=== PATIENT | female | born 1960 | race Caucasian/White ===

== ENCOUNTER 2023-08-13 21:54 | Emergency (ER) | payer BC ==
[2023-08-13 22:07] VITALS: TEMP 98.2
[2023-08-13] MEDS ORDERED: MORPHINE SULFATE 4 MG/ML SYRINGE IVP STA (23:18)
[2023-08-13] MEDS ORDERED: SODIUM CHLORIDE 0.9% 500 ML 500 ML IV STA (23:19)
--- NOTE | 2023-08-13 23:23 | ED ---
General Adult HPI - General Chief complaint: Extremity Injury, Upper Stated complaint: Left Shoulder/Arm Injury Time Seen by Provider: 08/13/23 23:01 Source: patient, RN notes reviewed, old records reviewed Mode of arrival: ambulatory Limitations: no limitations - History of Present Illness Initial comments: Patient is a 63-year-old female who presents emergency Department complaining of left shoulder pain. Patient tripped over her grandchild and landed with an outstretched left arm. Patient is complaining of shoulder pain since that time. Cannot move her shoulder. Denies hitting her head or loss consciousness. He is not on blood thinners. Has no other obvious injuries. Presents for further evaluation at this time. Patient is right-handed. - Related Data Previous Rx's Medication Instructions Recorded HYDROcodone/APAP 5-325MG [[place] 1 tab PO Q6HR PRN 3 Days #12 tab 08/14/23 5-325] Allergies Allergy/AdvReac Type Severity Reaction Status Date / Time No Known Allergies Allergy Verified 08/13/23 22:04 Review of Systems ROS Statement: Those systems with pertinent positive or pertinent negative responses have been documented in the HPI. Review of Systems: CONST: Denies fever EYES: Denies blurry vision ENT: Denies nasal congestion C/V: Denies Chest pain RESP: Denies shortness of breath GI: Denies abdominal pain : Denies dysuria SKIN: Denies rash. MSK: Endorses left shoulder pain NEURO: Denies headache ROS Other: All systems not noted in ROS Statement are negative. Past Medical History Past Medical History: Asthma, Diabetes Mellitus, Hyperlipidemia, Hypertension Additional Past Medical History / Comment(s): SVT Past Surgical History: Orthopedic Surgery Additional Past Surgical History / Comment(s): lithotripsy Past Psychological History: Anxiety, Depression Smoking Status: Never smoker Past Alcohol Use History: Occasional Past Drug Use History: None Reported General Exam - General Exam Comments Initial Comments: General: Appears in no acute distress. HEAD: Normal with no signs of head trauma. EYES: PERRLA, EOMI, conjunctiva normal, no discharge. ENT: Hearing grossly intact, normal oropharynx. RESPIRATORY: Clear breath sounds bilaterally. No wheezes, rales, or rhonchi. C/V: Regular rate and rhythm. S1 and S2 auscultated, peripheral pulses 2+ and intact throughout ABD: Abd is soft, nontender, nondistended EXT: Decreased range of motion of the left shoulder secondary to suspected suspected fracture. Tenderness to palpation over this shoulder. SKIN: No rashes or lesions observed on exposed skin. No evidence of open fracture. NEURO: Alert and oriented 4. Does not appear to have any sensory deficits along the entire left upper extremity. Does have normal motor function of the left elbow and left hand however difficult to assess the shoulder secondary to pain. Limitations: no limitations Course Vital Signs 08/13/23 08/13/23 08/14/23 21:59 23:13 00:17 Temperature 98.2 F Pulse Rate 109 H 90 Respiratory 20 16 Rate Blood Pressure 184/83 143/81 155/74 O2 Sat by Pulse 98 97 Oximetry 08/14/23 01:06 Temperature Pulse Rate 79 Respiratory 16 Rate Blood Pressure 148/74 O2 Sat by Pulse 97 Oximetry Procedures - Orthopedic Splinting/Casting Injury #1 Side: left Upper Extremity Injury Location: shoulder Upper Extremity Immobilizer: sling/shoulder immobilizer, posterior splint Additional Comments: Neurovascular intact following procedure. Medical Decision Making - Medical Decision Making Was pt. sent in by a medical professional or institution (, PA, MANUFACTURING PROJECT MANAGER, urgent care, hospital, or shelter...) When possible be specific @ -No Did you speak to anyone other than the patient for history (EMS, parent, family, police, friend...)? What history was obtained from this source @ -No Did you review nursing and triage notes (agree or disagree)? Why? @ -I reviewed and agree with nursing and triage notes Were old charts reviewed (outside hosp., previous admission, EMS record, old EKG, old radiological studies, urgent care reports/EKG's, shelter records)? Report findings @ -No old charts were reviewed Differential Diagnosis (chest pain, altered mental status, abdominal pain women, abdominal pain men, vaginal bleeding, weakness, fever, dyspnea, syncope, headache, dizziness, GI bleed, back pain, seizure, CVA, palpatations, mental health, musculoskeletal)? @ -Differential Musculoskeletal Muscular strain, contusion, ligament sprain, fracture, arthritis, septic arthritis, bursitis, cellulitis, muscle spasm, nerve compression, DVT, arterial occlusion, herpes zoster, electrolyte abnormality, tumor.... This is not meant to be in all inclusive list EKG interpreted by me (3pts min.). @ -As above X-rays interpreted by me (1pt min.). @ -Patient's x-ray of the left upper extremity reveals what appears to be a comminuted 3 part fracture of the surgical neck humerus. CT interpreted by me (1pt min.). @ -None done U/S interpreted by me (1pt. min.). @ -None done What testing was considered but not performed or refused? (CT, X-rays, U/S, labs)? Why? @ -None What meds were considered but not given or refused? Why? @ -None Did you discuss the management of the patient with other professionals (professionals i.e. DrPatricia, PA, MANUFACTURING PROJECT MANAGER, lab, RT, psych nurse, social science research assistant, prestidigitator, teacher, evp chief exploration officer, lining caser)? Give summary @ -I did speak with orthopedics, Dr. Beavers who is listed as being on city call. He was in agreement with evaluating the patient on Wednesday and in agreement with coaptation splint with sling or shoulder immobilizer. However he did inform me he does not believe there on first called but still willing to evaluate the patient. Was smoking cessation discussed for >3mins.? @ -No Was critical care preformed (if so, how long)? @ -No Were there social determinants of health that impacted care today? How? (Homelessness, low income, unemployed, alcoholism, drug addiction, transportation, low edu. Level, literacy, decrease access to med. care, care home, rehab)? @ -No Was there de-escalation of care discussed even if they declined (Discuss DNR or withdrawal of care, Hospice)? DNR status @ -No What co-morbidities impacted this encounter? (DM, HTN, Smoking, COPD, CAD, Cancer, CVA, ARF, Chemo, Hep., AIDS, mental health diagnosis, sleep apnea, morbid obesity)? @ -None Was patient admitted / discharged? Hospital course, mention meds given and route, prescriptions, significant lab abnormalities, going to OR and other pertinent info. @ -Based on the patient's presentation and physical exam, I'm concerned for left shoulder fracture. X-rays were already obtained prior to me evaluating the patient and it does appear that she has a comminuted left proximal humerus fracture, appears to be a 3 part fracture of the surgical neck of the humerus. Patient does not have any evidence of vascular compromise or neuro compromise. I did speak with orthopedics, Dr. Beavers who is listed as being on city call. He was in agreement with evaluating the patient on Wednesday and in agreement with coaptation splint with sling or shoulder immobilizer. However he did inform me he does not believe there on first called but still willing to evaluate the patient. I did discuss this with the patient. She was in agreement with the plan. Splint was placed by myself after administering IV morphine. She tolerated the procedure well. He was neurovascularly intact following the procedure. Strict return precautions discussed. Given starter pack for her Tylenol threes and Zofran as well as a prescription for [place]. Patient instructed to follow-up with orthopedics on Wednesday. I will provide the patient with a prescription for [place]. I instructed the patient to follow up with their PCP in the next 1-3 days. I provided contact information for follow up with orthopedics. I explained that the patient should return to the emergency department if they experience any worsening symptoms. Strict return precautions were discussed with the patient. The patient expressed understanding of these instructions. I answered all questions that the patient had. The patient was discharged home in fair condition with their prescriptions and follow up information. Undiagnosed new problem with uncertain prognosis? @ -No Drug Therapy requiring intensive monitoring for toxicity (Heparin, Nitro, Insulin, Cardizem)? @ -No Were any procedures done? @ -Coaptation splint Diagnosis/symptom? @ -Left comminuted proximal humerus fracture, suspect 3 part fracture of the surgical neck. Fall. Acute, or Chronic, or Acute on Chronic? @ -Acute Uncomplicated (without systemic symptoms) or Complicated (systemic symptoms)? @ -Complicated Side effects of treatment? @ -No Exacerbation, Progression, or Severe Exacerbation? @ -No Poses a threat to life or bodily function? How? (Chest pain, [place], [place], pneumonia, PE, COPD, DKA, ARF, appy, cholecystitis, CVA, Diverticulitis, Homicidal, Suicidal, threat to staff... and all critical care pts) @ -No Disposition Clinical Impression: Fracture of surgical neck of left humerus, 3-part fracture of surgical neck of left humerus Disposition: HOME SELF-CARE Condition: Fair Instructions (If sedation given, give patient instructions): Proximal Humerus Fracture (ED) Additional Instructions: call orthopedics office on wednesday for an appointment with Dr. Beavers. Prescriptions: HYDROcodone/APAP 5-325MG [[place] 5-325] 1 tab PO Q6HR PRN 3 Days #12 tab PRN Reason: Pain Is patient prescribed a controlled substance at d/c from ED?: Yes When asked, does pt state using other controlled substances?: No If prescribed controlled substance>3 days was MAPS reviewed?: Prescribed <3 Days If opioid is for acute pain is fill amount 7 days or less?: Yes If Rx opioid, was Start Talking consent form obtained?: Yes Referrals: Raffy Casillas DO [Primary Care Provider] - 1-2 days Jason Beavers MD [STAFF PHYSICIAN] - 1-2 days Time of Disposition: 23:22
[2023-08-13 23:28] VITALS: RESP 16
[2023-08-14] MEDS ORDERED: MORPHINE SULFATE 4 MG/ML SYRINGE IVP STA (00:16)
[2023-08-14] MEDS ORDERED: MORPHINE SULFATE 2 MG/ML SYRINGE IVP STA ×2 (00:17→00:32)
[2023-08-14] MEDS ORDERED: ONDANSETRON 4 MG/2 ML VIAL IVP STA (00:19)
[2023-08-14] MEDS ORDERED: ACET/COD 300 MG/30 MG STARTER PACK 6 TAB BTL PO STA (00:22)
[2023-08-14] MEDS ORDERED: ONDANSETRON 4 MG ODT STARTER PACK 2 TAB BTL PO STA (00:22)
[2023-08-14 01:11] VITALS: BP 148/74; PULSE 79
--- NOTE | 2023-08-14 02:32 | XR ---
EXAM: XR Left Elbow CLINICAL HISTORY: ITS.REASON XR Reason: fall, pain TECHNIQUE: 2 views of the left elbow. COMPARISON: No relevant prior studies available. FINDINGS: Bones/joints: No acute fracture. No dislocation. Soft tissues: Unremarkable. IMPRESSION: No acute osseous abnormalities.
--- NOTE | 2023-08-14 02:32 | XR ---
EXAM: XR Left Humerus, 2 or More Views CLINICAL HISTORY: ITS.REASON XR Reason: fall, pain TECHNIQUE: Frontal and lateral views of the left humerus. COMPARISON: No relevant prior studies available. IMPRESSION: Comminuted fracture humeral head/neck.
--- NOTE | 2023-08-14 02:33 | XR ---
EXAM: XR Left Shoulder Complete, 2 or More Views CLINICAL HISTORY: ITS.REASON XR Reason: fall, pain TECHNIQUE: Two or more views of the left shoulder. COMPARISON: No relevant prior studies available. IMPRESSION: Comminuted fracture left humeral neck/head. Shoulder joint intact.
== END 2023-08-14 01:21 | disposition home or self-care (01) ==
LOC: EC 21:54
DX: S42.292A Other displaced fracture of upper end of left humerus, initial encounter for closed fracture (principal); I10 Essential (primary) hypertension; J45.909 Unspecified asthma, uncomplicated; E11.9 Type 2 diabetes mellitus without complications; Z86.59 Personal history of other mental and behavioral disorders; W01.0XXA Fall on same level from slipping, tripping and stumbling without subsequent striking against object, initial encounter
CPT/HCPCS: 73030; 73060; 73070; 99284; 96374; 96375; 96376 ×2; J2270

== ENCOUNTER → 2024-09-15 | Outpatient (CLI) | payer BC ==
--- NOTE | 2024-09-17 20:18 | US ---
EXAMINATION TYPE: US abdomen complete DATE OF EXAM: 09/15/2024 COMPARISON: NONE CLINICAL INDICATION: Female, 64 years old with history of R10.11 RUQ PAIN; RUQ intermittent pain. TECHNIQUE: Grayscale and color Doppler imaging of the abdomen was performed. FINDINGS: EXAM MEASUREMENTS: Liver Length: 14.1 cm Gallbladder Wall: 0.29 cm CBD: Obscured, color Doppler imaging was utilized to isolate the common bile duct for measurement. Spleen: 10.0 cm Right Kidney: 11.4 x 5.1 x 5.5 cm Left Kidney: 11.1 x 4.8 x 5.6 cm ENTRY LEVEL PROGRAMMER NOTES: Limited due to gas. Pancreas: Obscured Liver: *Increased echogenicity, coarse in echotexture, increased attenuation. Gallbladder: *Limited due to gas, question internal echoes versus artifact. Evidence for sonographic Sibley's sign: No CBD: Obscured Spleen: Limited, no abnormalities seen. Right Kidney: Cortex appears thin. Appearance of probable column of Jeff. Left Kidney: Lobulated contour. No hydronephrosis or masses seen Upper IVC: Appears wnl Abd Aorta: Portion of mid aorta was obscured. Iliacs were obscured. IMPRESSION: 1. Somewhat limited examination. Suspicious acute ultrasound abnormality of the abdomen is not identi fied. [facility], , 09/17/2024 8:16 PM
== END | disposition home or self-care (01) ==
LOC: RADUSWWP 07:39
PROVIDERS: ATTEND Family Medicine
DX: R10.11 Right upper quadrant pain (principal)
CPT/HCPCS: 76700

== ENCOUNTER → 2024-11-27 | Outpatient (CLI) | payer BC ==
--- NOTE | 2024-11-28 09:25 | MM ---
Reason for Exam: Screening (asymptomatic). Patient History: Menarche at age 11. First Full-Term at age 21. Postmenopausal. Patient has history of breast feeding. Hormonal Contraceptives for 4 months. Maternal aunt had breast cancer at or over age 50. Risk Values: Britta 5 year model risk: 1.5%. NCI Lifetime model risk: 5.6%. Prior Study Comparison: No prior studies available for comparison. Tissue Density: The breasts are heterogeneously dense, which may obscure small masses. Findings: Analyzed By CAD. Right breast: There is no suspicious group of microcalcifications or new suspicious mass. Left breast: There is no suspicious group of microcalcifications or new suspicious mass. Overall Assessment: Negative, BI-RAD 1 Management: Screening Mammogram of both breasts in [address] [facility] will attempt to contact patient to return for supplemental views and ultrasound if indicated. Patient should continue monthly self-breast exams. A clinical breast exam by your physician is recommended on an annual basis. This exam should not preclude additional follow-up of suspicious palpable abnormalities. Note on Britta scores and lifetime risk: 1. A Britta score greater than 3% is considered moderate risk. If this is the case, consider specialist referral to assess eligibility for a risk reducing agent. 2. If overall lifetime risk for the development of breast cancer is 20% or higher, the patient may qualify for future screening with alternating mammogram and breast MRI. [facility], , 11/28/2024 9:22 AM. Electronically signed and approved by: Deven Escalante DO
== END | disposition home or self-care (01) ==
LOC: RADMAMWWP 11:12
PROVIDERS: ATTEND Obstetrics & Gynecology
DX: Z12.31 Encounter for screening mammogram for malignant neoplasm of breast (principal); R92.333 Mammographic heterogeneous density, bilateral breasts; Z78.0 Asymptomatic menopausal state; Z80.3 Family history of malignant neoplasm of breast
CPT/HCPCS: 77063; 77067